=== PATIENT | born 1975 | race Caucasian/White ===

== ENCOUNTER → 2020-12-25 13:41 | Outpatient (CLI) | payer BC, SELFPAY ==
[2020-12-25] MEDS: COVID-19 VACC #1, MRNA(MOD) 100 MCG/0.5 ML VIAL IM (13:47)
== END ==
PROVIDERS: Visit Provider Internal Medicine
DX: Z23 Encounter for immunization (principal)
CPT/HCPCS: 0011A; 91301

== ENCOUNTER → 2021-01-22 09:49 | Outpatient (CLI) | payer BC, SELFPAY ==
[2021-01-22] MEDS: COVID-19 VACC #2, MRNA(MOD) 100 MCG/0.5 ML VIAL IM (09:54)
== END ==
PROVIDERS: Visit Provider Internal Medicine
DX: Z23 Encounter for immunization (principal)
CPT/HCPCS: 0012A; 91301

== ENCOUNTER → 2021-02-25 15:50 | Outpatient (CLI) | payer BC, SELFPAY ==
--- NOTE | 2021-02-25 | DI.US.S_ITS ---
PROCEDURE: US SCROTUM INDICATIONS: LEFT TESTICULAR PAIN TECHNIQUE: Real-time scanning was performed of the scrotum and testicles, with image documentation. Color and pulse Doppler interrogation was performed of both testicles. COMPARISON: None. FINDINGS: Right: Testicle is normal in size at 2.8 x 3.6 x 4.8 cm, and homogenous in echotexture. There is a benign simple cyst measuring approximately 3 millimeters in the superior and medial right testicle. Epididymis is normal in overall size and morphology. Small hydrocele with debris. No varicocele. Overlying scrotal skin is normal in thickness. Left: Testicle is normal in size at 2.4 x 3.6 x 5.3 cm, and homogeneous in echotexture. Left epididymal head cyst measuring approximately 2 millimeters. Small hydrocele with debris. No varicocele. Overlying scrotal skin is normal in thickness. Doppler: Color and pulse Doppler demonstrate normal and symmetric arterial flow in both testicles. IMPRESSION: Small bilateral hydroceles with debris.. Tiny epididymal head cyst measuring 2 millimeters, of unlikely clinical significance. No mass in the left testicle. Dictated by: Alfredo Camargo M.D. on 02/26/2021 at 9:19 Approved by: Alfredo Camargo M.D. on 02/26/2021 at 9:21
== END ==
PROVIDERS: PCP Student in an Organized Health Care Education/Training Program; Referring Provider Nurse Practitioner Family; Visit Provider Nurse Practitioner Family
DX: N50.812 Left testicular pain (principal)
CPT/HCPCS: 76870